=== PATIENT | female | born 1965 | race Caucasian/White ===

== ENCOUNTER 2019-02-08 12:08 | Inpatient (IN) | payer OTHER ==
--- NOTE | 2019-02-08 12:15 | PDOC ---
Rapid Medical Evaluation Chief Complaint: Blood Pressure Problem Time Seen by Provider: 02/08/19 12:11 Medical Evaluation: Allergies Allergy/AdvReac Type Severity Reaction Status Date / Time acetaminophen [From Percocet] AdvReac Severe Hives Verified 01/07/16 13:24 oxycodone HCl [From Percocet] AdvReac Severe Hives Verified 01/07/16 13:24 02/08/19 12:11 I performed a brief in-person evaluation of this patient. Briefly, this is a 54-year-old female with a history only of hypothyroidism who "felt funny" (brief blurred vision, "mixed up words") at work. Checked BP there and found it to be high - 156/110. No history of HTN. Asymptomatic at present. BP here is 128/83 I have ordered the following: None. Patient to proceed to the ED for further evaluation. Discharge Disposition - Diagnosis Hypertension - Referrals - Patient Instructions - Post Discharge Activity
--- NOTE | 2019-02-08 12:26 | PDOC ---
History of Present Illness - General Chief Complaint: Blood Pressure Problem Stated Complaint: HTN/BLURRY VISION Time Seen by Provider: 02/08/19 12:11 History Source: Patient Exam Limitations: No Limitations - History of Present Illness Initial Comments: Pt is a 54 yo F, with PMH of hypothyroidism (last checked 11/30), who is presenting after an hour-long episode of difficulty finding her words, blurry vision, light-headedness, and "feeling flushed all over, like agitated". Pt states the episode lasted about an hour, and her BP was higher than usual (156/ 110). Pt states her symptoms have improved by the time she came to the ER, and has never been prescribed medication for HTN. Pt did have pre-eclampsia during her last , which resolved. Pt denies any recent fevers/chills, headache , syncope, chest pain, palpitations, SOB, nausea/vomiting, abdominal pain, urinary symptoms, diarrhea/constipation, or leg swelling. Allergies: NKDA PCP: Dr. Hardy Social: Pt denies any cigarette, alcohol, or drug use. Pt denies any recent travel or sick contacts. Surgical: , tubal ligation Family: no relevant history. 02/08/19 16:45 02/08/19 16:49 Past History - Travel Traveled outside of the country in the last 30 days: No Close contact w/someone who was outside of country & ill: No - Past Medical History Allergies/Adverse Reactions: Allergies Allergy/AdvReac Type Severity Reaction Status Date / Time acetaminophen [From Percocet] AdvReac Severe Hives Verified 01/07/16 13:24 oxycodone HCl [From Percocet] AdvReac Severe Hives Verified 01/07/16 13:24 Home Medications: Ambulatory Orders Levothyroxine [Synthroid -] 50 mcg PO DAILY 08/19/15 COPD: No Thyroid Disease: Yes (HYPOTHYROID) - Immunization History Immunization Up to Date: No - Psycho Social/Smoking Cessation Hx Smoking History: Never smoked Have you smoked in the past 12 months: No Information on smoking cessation initiated: No Hx Alcohol Use: No Drug/Substance Use Hx: No Substance Use Type: None Neuro Specific PMHX - Complaint Specific PMHX Glaucoma: No Herniated Disk: No Laminectomy: No Migraine: No Multiple Sclerosis: No Neuropathy: No TIA: No Review of Systems - Review of Systems Able to Perform ROS?: Yes Is the patient limited Croatian proficient: No Constitutional: Yes: Weight Stable. No: Chills, Diaphoresis, Fever, Loss of Appetite, Malaise, Weakness HEENTM: Yes: Blurred Vision. No: Double Vision, Nose Congestion, Throat Pain, Throat Swelling, Difficulty Swallowing Respiratory: No: Cough, Orthopnea, Shortness of Breath Cardiac (ROS): Yes: Lightheadedness. No: Chest Pain, Edema, Irregular Heart Rate, Palpitations, Syncope, Chest Tightness ABD/GI: No: Constipated, Diarrhea, Nausea, Poor Appetite, Poor Fluid Intake, Vomiting : No: Burning, Dysuria, Flank Pain, Pain, Urgency Musculoskeletal: No: Back Pain, Muscle Pain, Muscle Weakness Integumentary: No: Rash Neurological: Yes: Paresthesia ("flushed and tingling all over"). No: Headache , Numbness, Seizure, Weakness, Unsteady Gait, Dizziness Psychiatric: No: Sleep Pattern Change, Change in Appetite Endocrine: No: Increased Urine, Change in Weight Hematologic/Lymphatic: No: Anemia, Blood Clots, Easy Bleeding, Easy Bruising All Other Systems: Reviewed and Negative *Physical Exam - Vital Signs Last Vital Signs Temp Pulse Resp BP Pulse Ox 98.4 F 83 16 128/83 99 02/08/19 12:12 02/08/19 12:12 02/08/19 12:12 02/08/19 12:12 02/08/19 12:12 - Physical Exam Comments: Vitals stable, not currently HTN on exam, pt afebrile. Pt in NAD, normal body habitus. Pt alert and oriented x3. 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 Cerebellar exam WNL. No midline spinal tenderness, step-offs, or crepitus. Head normocephalic, atraumatic. Eyes PERRLA, EOMI. Oropharynx without erythema or exudates, no LAD b/l. No nasal congestion, hearing intact. Clear heart sounds, S1/S2, no JVD, b/l pedal edema, or heart murmur. Clear lung sounds, no respiratory distress, wheezes, crackles, or accessory muscle use. No abdominal or CVA tenderness to palpation, no rebound, no guarding. Abdomen soft, non-distended, and with normoactive bowel sounds. Skin without jaundice or rash. 02/08/19 16:50 ED Treatment Course - LABORATORY CBC & Chemistry Diagram: 02/08/19 12:53 02/08/19 12:53 Medical Decision Making - Medical Decision Making Pt was seen at bedside, also will be seen by attending Dr. Mendosa. Pt presenting after an hour-long episode of elevated BP with concerning symptoms, including blurry vision, difficulty with word-finding, and light-headedness. Pts symptoms resolved in ER, with benign neurological exam. Considering ACS vs CVA/TIA vs hypertensive emergency. Will continue to reassess pt and monitor for symptomatic improvement. ECG: NSR (HR 80, CO 114, QRS 74, QTc 435). Flattening in III and AVF. No significant ST segment changes. No prior ECG for comparison. 02/08/19 16:04 CBC, CMP and coags generally WNL Trop <.02 Elevated LDL and total cholesterol -- providing aspirin CT head with no acute pathology. UA with no evidence of infection. Pt admitted to hospitalist team on stroke/tele bed for further observation and urgent MRI, as CT does not definitively r/o possible CVA/TIA. Will monitor for BP control and further neurologic symptoms. 02/08/19 16:51 Discharge - Discharge Information Problems reviewed: Yes Clinical Impression/Diagnosis: TIA (transient ischemic attack) Hypertension Qualifiers: Hypertension type: essential hypertension Qualified Code(s): I10 - Essential ( primary) hypertension Condition: Stable - Admission Yes - Follow up/Referral - Patient Discharge Instructions - Post Discharge Activity
[2019-02-08 13:05] LABS: BASO % 0.9 % (0-2.0); EOS % 0.5 % (0-4.5); HEMATOCRIT 38.4 % (32.4-45.2); HEMOGLOBIN 12.7 GM/dL (10.7-15.3); LYMPH % 19.1 % (8-40); MCH 31.2 pg (25.7-33.7); MCHC 33.1 g/dl (32.0-36.0); MEAN CELL VOLUME 94.3 fl (80-96); MEAN PLT VOLUME 10.8 fl (7.5-11.1); MONO % 5.5 % (3.8-10.2); PLATELET COUNT 169 K/MM3 (134-434); RBC 4.07 M/mm3 (3.60-5.2); RDW 13.6 % (11.6-15.6); WHITE BLOOD COUNT 6.3 K/mm3 (4.0-10.0)
[2019-02-08 13:44] LABS: ALBUMIN 4.3 g/dl (3.4-5.0); ALK PHOS 75 U/L (45-117); ANION GAP 8 MMOL/L (8-16); BILIRUBIN,TOTAL 0.3 mg/dL (0.2-1); BLOOD UREA NITROGEN 11.8 mg/dL (7-18); CALCIUM 9.2 mg/dL (8.5-10.1); CHLORIDE 103 mmol/L (98-107); CHOLESTEROL 227 mg/dL (50-200); CO2 28 mmol/L (21-32); GLUCOSE,RANDOM 123 mg/dL (74-106); HDL CHOLESTEROL 68 mg/dL (40-60); LDL CHOLESTEROL (ONLY SJRH) 140 mg/dL (5-100); POTASSIUM 3.5 mmol/L (3.5-5.1); SGOT/AST 19 U/L (15-37); SGPT/ALT 21 U/L (13-61); SODIUM 139 mmol/L (136-145); TOT PROT 7.5 g/dl (6.4-8.2); TRIGLYCERIDES 109 mg/dL (0-150)
--- NOTE | 2019-02-08 13:58 | EKG ---
Test Reason : Blood Pressure : / mmHG Vent. Rate : 080 BPM Atrial Rate : 080 BPM P-R Int : 114 ms QRS Dur : 074 ms QT Int : 378 ms P-R-T Axes : 032 -01 046 degrees QTc Int : 435 ms NORMAL SINUS RHYTHM NONSPECIFIC ST AND T WAVE ABNORMALITY ABNORMAL ECG WHEN COMPARED WITH ECG OF 10-DEC-2008 19:41, NONSPECIFIC T WAVE ABNORMALITY NOW EVIDENT IN INFERIOR LEADS Confirmed by ELIAS AGUILAR MD ([id number]) on 02/08/2019 1:58:04 PM Referred By: Confirmed By:ELIAS AGUILAR MD
[2019-02-08 14:24] LABS: INR 1.01 (0.83-1.09)
[2019-02-08 14:26] LABS: PROTHROMBIN TIME (PATIENT) 11.9 SEC (9.7-13.0)
[2019-02-08 14:30] LABS: URINE APPEARANCE CLEAR; URINE BILIRUBIN NEGATIVE (NEGATIVE); URINE COLOR YELLOW; URINE GLUCOSE (UA) NEGATIVE (NEGATIVE); URINE KETONE NEGATIVE (NEGATIVE)
[2019-02-08 14:33] LABS: URINE PROTEIN NEGATIVE (NEGATIVE)
[2019-02-08 14:34] LABS: URINE UROBILINOGEN 0.2 mg/dL (0.2-1.0)
[2019-02-08 14:55] LABS: URINE LEUK ESTERASE TRACE (NEGATIVE); URINE NITRITE NEGATIVE (NEGATIVE)
--- NOTE | 2019-02-08 14:56 | PDOC ---
Attending Attestation - Resident Resident Name: Layla Florez - ED Attending Attestation I have performed the following: I have examined & evaluated the patient, The case was reviewed & discussed with the resident, I agree w/resident's findings & plan, Exceptions are as noted - HPI HPI: 02/08/19 15:07 54 years old hypertension high cholesterol presents to the emergency department with episode of word finding difficulty and slurred speech. - Physicial Exam PE: 02/08/19 15:07 Vitals: Triage Vital signs reviewed General Appearance: no acute distress, well nourished well developed, Head: Atraumatic, Neck: Supple;No Nucal rigidity Chest Wall: Nontender Cardiac: Regular rate and rhythym, no murmurs, no rubs, no gallops, Lungs: Clear to auscultation bilateral, good air movement bilaterally, Abdomen: Soft, non distended, normal bowel sounds, non tender to palpation Extremities: Full range of motion to all extremities, no cyanosis, clubbing, or edema Skin: Warm and dry, no rashes or lesions, no rash, no petechiae Neuro: AOX3; Cranial Nerves 2-12 grossly intact, Strength intact to all extremities, Sensation intact to all extremities,gait normal Psych: normal mood, normal affect - Medical Decision Making 02/08/19 18:42 54 years old with possible TIA current NIHSS Score 0 Given uncontrolled hypertension uncontrolled high cholesterol we'll admit patient for further management.
[2019-02-08] MEDS ORDERED: ASPIRIN 325 MG TABLET PO ONE (15:05)
[2019-02-08] MEDS ORDERED: ASPIRIN 81 MG CHEWABLE TABLETS ONE (15:22)
--- NOTE | 2019-02-08 15:29 | HP ---
Admitting History and Physical - Primary Care Physician PCP: Ghassan Hardy - Admission Chief Complaint: single episode of word finding that immediately resolved History of Present Illness: 54 yo old female with PMH for hypothyroidism (on synthroid) & HLD (not on meds ) recently treated for a UTI with macrobid presenting to the ED with sigle episode of word finding. 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 She realized what she was saying and corrected herself. 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 History of Recent Travel: No Home Medications - Allergies Allergies/Adverse Reactions: Allergies Allergy/AdvReac Type Severity Reaction Status Date / Time acetaminophen [From Percocet] AdvReac Severe Hives Verified 01/07/16 13:24 oxycodone HCl [From Percocet] AdvReac Severe Hives Verified 01/07/16 13:24 - Home Medications Home Medications: Ambulatory Orders Levothyroxine [Synthroid -] 50 mcg PO DAILY 08/19/15 Family Medical History Family History: Denies Review of Systems - Review of Systems Constitutional: reports: No Symptoms Eyes: reports: No Symptoms HENT: reports: No Symptoms Neck: reports: No Symptoms Cardiovascular: reports: No Symptoms Respiratory: reports: No Symptoms Gastrointestinal: reports: No Symptoms Genitourinary: reports: No Symptoms Breasts: reports: No Symptoms Reported Musculoskeletal: reports: No Symptoms Integumentary: reports: No Symptoms Neurological: reports: No Symptoms Endocrine: reports: No Symptoms Hematology/Lymphatic: reports: No Symptoms Psychiatric: reports: No Symptoms Physical Examination Vital Signs: Vital Signs Temperature 98.4 F 02/08/19 12:12 Pulse Rate 83 02/08/19 12:12 Respiratory Rate 16 02/08/19 12:12 Blood Pressure 128/83 02/08/19 12:12 O2 Sat by Pulse Oximetry (%) 99 02/08/19 12:12 Constitutional: Yes: Well Nourished, No Distress, Calm Eyes: Yes: WNL, Conjunctiva Clear, EOM Intact HENT: Yes: WNL, Atraumatic, Normocephalic Neck: Yes: WNL, Supple, Trachea Midline Cardiovascular: Yes: WNL, Regular Rate and Rhythm Respiratory: Yes: WNL, Regular, CTA Bilaterally Gastrointestinal: Yes: WNL, Normal Bowel Sounds ...Rectal Exam: Yes: Deferred Renal/: Yes: WNL Breast(s): Yes: WNL Musculoskeletal: Yes: WNL Extremities: Yes: WNL Edema: No Peripheral Pulses WNL: Yes Integumentary: Yes: WNL Neurological: Yes: WNL, Alert, Oriented, Cran Nerves II-XII Intact ...Motor Strength: WNL Psychiatric: Yes: WNL Labs: CBC, BMP 02/08/19 12:53 02/08/19 12:53 Imaging - Results Cat Scan: Report Reviewed (HCT: no acute pathology) Problem List - Problems (1) TIA (transient ischemic attack) Assessment/Plan: claimed to have word finding that quickly resolved no dystharia on examination HCT without acute pathology ASA given in ED lipids panel sent, chol high observe on tele for return/procession of symptoms start atorvastatin continue ASA spoke with Dr Siegel and will see MRI of brain Code(s): G45.9 - TRANSIENT CEREBRAL ISCHEMIC ATTACK, UNSPECIFIED (2) Hypertension Assessment/Plan: normotensive or arrival to ED, on no meds will continue to monitor Code(s): I10 - ESSENTIAL (PRIMARY) HYPERTENSION (3) Urinary tract infection Assessment/Plan: completed course of macrobid, UA negative Code(s): N39.0 - URINARY TRACT INFECTION, SITE NOT SPECIFIED (4) Prophylactic measure Assessment/Plan: FEN no IVF needed monitor electrolytes DVT ambulatory c/w ASA Dispo observation on tele full code discharge planning Code(s): Z29.9 - ENCOUNTER FOR PROPHYLACTIC MEASURES, UNSPECIFIED Visit type - Emergency Visit Emergency Visit: Yes ED Registration Date: 02/08/19 Care time: The patient presented to the Emergency Department on the above date and was hospitalized for further evaluation of their emergent condition. - New Patient This patient is new to me today: Yes Date on this admission: 02/08/19 - Critical Care Critical Care patient: No
--- NOTE | 2019-02-08 16:22 | PN.NIHSS ---
NIH Stroke Scale - Last Known Well Date/Time & Onset Date Last Known Well: 02/08/19 Time Last Known Well: 11:30 - Initial Evaluation Level of consciousness: Alert Ask patient the month and their age: Answers both correctly Ask patient to open & close eyes; make fist and let go: Obeys both correctly Best gaze (horizontal eye movement): Normal Visual field testing: No visual field loss Facial paresis (Show teeth/raise eyebrows/close eyes tight): Normal symmetrical movement Motor Function: Left Arm: Normal Motor Function: Right Arm: Normal (extends arm 90 (or 45) degrees for 10 seconds without drift Motor Function: Left Leg: Normal (extends leg 30 degrees for 5 seconds without drift) Motor Function: Right Leg: Normal (extends leg 30 degrees for 5 seconds without drift) Limb Ataxia: No ataxia Sensory(Use pinprick test arms,legs,trunk,face/side to side): Normal Best language (Describe picture, name items, read sentences): No Aphasia Dysarthria (read several words): Normal articulation Extinction and Inattention: No abnormality - Total Score NIH Stroke Scale Score: 0
[2019-02-08] MEDS ORDERED: LORazepam 2 MG/ML SDV VIAL ONE (16:54)
[2019-02-08 18:45] VITALS: BMI 24.1
[2019-02-08] MEDS: ATORVASTATIN CA 40 MG TABLET (FP) PO SCH ×2 (21:01→21:04)
[2019-02-09] MEDS: LEVOTHYROXINE NA 50 MCG TABLET (FP) PO SCH (06:08)
[2019-02-09 07:29] LABS: BASO % 0.8 % (0-2.0); EOS % 1.4 % (0-4.5); HEMOGLOBIN 12.9 GM/dL (10.7-15.3); LYMPH % 39.5 % (8-40); MCH 31.6 pg (25.7-33.7); MCHC 33.2 g/dl (32.0-36.0); MEAN CELL VOLUME 95.3 fl (80-96); MEAN PLT VOLUME 10.6 fl (7.5-11.1); MONO % 7.3 % (3.8-10.2); PLATELET COUNT 168 K/MM3 (134-434); RBC 4.09 M/mm3 (3.60-5.2); WHITE BLOOD COUNT 5.6 K/mm3 (4.0-10.0)
[2019-02-09 07:49] LABS: BILIRUBIN,TOTAL 0.4 mg/dL (0.2-1); BLOOD UREA NITROGEN 12.2 mg/dL (7-18); CALCIUM 8.8 mg/dL (8.5-10.1); CREATININE 0.9 mg/dL (0.55-1.3); MAGNESIUM 2.4 mg/dL (1.8-2.4); POTASSIUM 4.4 mmol/L (3.5-5.1); TOT PROT 7.2 g/dl (6.4-8.2)
--- NOTE | 2019-02-09 14:14 | PN ---
Physical Exam: Chief Complaint: single episode of word finding that immediately resolved History of Present Illness: 54 yo old female with PMH for hypothyroidism (on synthroid) & HLD (not on meds ) recently treated for a UTI with macrobid presenting to the ED with sigle episode of word finding. 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 She realized what she was saying and corrected herself. She took her BP and it was noted to be in the low 160s and came to the ED for evaluation SUBJECTIVE: Patient seen and examined while patient sitting in chair. Patients states she feels normal. Denies CP, Fever, Chills, SHOB, N/V/D OBJECTIVE: Vital Signs Period Temp Pulse Resp BP Sys/Sanchez Pulse Ox Last 24 Hr 97.8 F-98.9 F 66-90 19-20 108-127/61-76 97-100 GENERAL: The patient is awake, alert, and fully oriented, in no acute distress. HEAD: Normal with no signs of trauma. EYES: PERRL, extraocular movements intact, sclera anicteric, conjunctiva clear. No ptosis. ENT: Ears normal, nares patent, oropharynx clear without exudates, moist mucous membranes. NECK: Trachea midline, full range of motion, supple. LUNGS: Breath sounds equal, clear to auscultation bilaterally, no wheezes, no crackles, no accessory muscle use. HEART: Regular rate and rhythm, S1 ABDOMEN: Soft, nontender, nondistended, normoactive bowel sounds, no guarding, no rebound, no hepatosplenomegaly, no masses. EXTREMITIES: 2+ pulses, warm, well-perfused, no edema. NEUROLOGICAL: Cranial nerves II through XII grossly intact. Normal speech, gait not observed. PSYCH: Normal mood, normal affect. SKIN: Warm, dry, normal turgor, no rashes or lesions noted Laboratory Results - last 24 hr 02/08/19 02/08/19 02/08/19 12:53 12:54 21:00 WBC RBC Hgb Hct MCV MCH MCHC RDW Plt Count MPV Absolute Neuts (auto) Neutrophils % Lymphocytes % Monocytes % Eosinophils % Basophils % Nucleated RBC % PT with INR 11.90 INR 1.01 Sodium Potassium Chloride Carbon Dioxide Anion Gap BUN Creatinine Est GFR (CKD-EPI)AfAm Est GFR (CKD-EPI)NonAf POC Glucometer 109 Random Glucose Calcium Magnesium Total Bilirubin AST ALT Alkaline Phosphatase Total Protein Albumin Urine Color Yellow Urine Appearance Clear Urine pH 7.0 Ur Specific [place] 1.004 L Urine Protein Negative Urine Glucose (UA) Negative Urine Ketones Negative Urine Blood Negative Urine Nitrite Negative Urine Bilirubin Negative Urine Urobilinogen 0.2 Ur Leukocyte Esterase Trace 02/09/19 02/09/19 02/09/19 06:07 06:15 06:15 WBC 5.6 RBC 4.09 Hgb 12.9 Hct 39.0 MCV 95.3 MCH 31.6 MCHC 33.2 RDW 14.0 Plt Count 168 MPV 10.6 Absolute Neuts (auto) 2.9 Neutrophils % 51.0 D Lymphocytes % 39.5 D Monocytes % 7.3 Eosinophils % 1.4 D Basophils % 0.8 Nucleated RBC % 0 PT with INR INR Sodium 141 Potassium 4.4 Chloride 106 Carbon Dioxide 30 Anion Gap 5 L BUN 12.2 Creatinine 0.9 Est GFR (CKD-EPI)AfAm 82.84 Est GFR (CKD-EPI)NonAf 71.48 POC Glucometer 84 Random Glucose 86 Calcium 8.8 Magnesium 2.4 Total Bilirubin 0.4 AST 19 ALT 22 Alkaline Phosphatase 80 Total Protein 7.2 Albumin 4.0 Urine Color Urine Appearance Urine pH Ur Specific [place] Urine Protein Urine Glucose (UA) Urine Ketones Urine Blood Urine Nitrite Urine Bilirubin Urine Urobilinogen Ur Leukocyte Esterase 02/09/19 12:26 WBC RBC Hgb Hct MCV MCH MCHC RDW Plt Count MPV Absolute Neuts (auto) Neutrophils % Lymphocytes % Monocytes % Eosinophils % Basophils % Nucleated RBC % PT with INR INR Sodium Potassium Chloride Carbon Dioxide Anion Gap BUN Creatinine Est GFR (CKD-EPI)AfAm Est GFR (CKD-EPI)NonAf POC Glucometer 150 Random Glucose Calcium Magnesium Total Bilirubin AST ALT Alkaline Phosphatase Total Protein Albumin Urine Color Urine Appearance Urine pH Ur Specific [place] Urine Protein Urine Glucose (UA) Urine Ketones Urine Blood Urine Nitrite Urine Bilirubin Urine Urobilinogen Ur Leukocyte Esterase Active Medications Generic Name Dose Route Start Last Admin Trade Name Freq PRN Reason Stop Dose Admin Atorvastatin Calcium 40 mg 02/08/19 22:00 02/08/19 21:04 Lipitor - PO Not Given HS PLACIDO Levothyroxine Sodium 50 mcg 02/09/19 07:00 02/09/19 06:08 Synthroid - PO 50 mcg AM PLACIDO Administration ASSESSMENT/PLAN: - Problems (1) TIA (transient ischemic attack) Assessment/Plan: no dystharia on examination HCT without acute pathology ASA given in ED lipids panel -Cholesterol Elevated -Discussed labs and educated patient on the importance of keeping her cholesterol under control and states she will not take any medication for her cholesterol and will manage it with diet. Observe on tele Patient refused atorvastatin continue ASA spoke with Dr Siegel and will see today after 3pm MRI of brain-No Acute pathology Code(s): G45.9 - TRANSIENT CEREBRAL ISCHEMIC ATTACK, UNSPECIFIED (2) Hypertension Assessment/Plan: normotensive or arrival to ED, on no meds will continue to monitor Code(s): I10 - ESSENTIAL (PRIMARY) HYPERTENSION (3) Urinary tract infection Assessment/Plan: completed course of macrobid, UA negative -Preliminary-Non Fermenting Lactose Fermenting Gnb (60k-70k colony count) Code(s): N39.0 - URINARY TRACT INFECTION, SITE NOT SPECIFIED (4) Prophylactic measure Assessment/Plan: FEN no IVF needed monitor electrolytes DVT ambulatory c/w ASA Dispo observation on tele full code discharge planning Code(s): Z29.9 - ENCOUNTER FOR PROPHYLACTIC MEASURES, UNSPECIFIED Visit type - Emergency Visit Emergency Visit: Yes ED Registration Date: 02/08/19 Care time: The patient presented to the Emergency Department on the above date and was hospitalized for further evaluation of their emergent condition. - New Patient This patient is new to me today: Yes Date on this admission: 02/10/19 - Critical Care Critical Care patient: No - Discharge Referral Referred to [facility] Med P.C.: No
--- NOTE | 2019-02-09 18:00 | CON.NEURO ---
Consult Consult Specialty:: NEUROLOGY-KATHY SMITH - History of Present Illness History of Present Illness: Pt is a 54 yo F, with PMH of hypothyroidism (last checked 11/30), who is presenting after an hour-long episode of difficulty finding her words, blurry vision, light-headedness, and "feeling flushed all over, like agitated". Pt states the episode lasted about an hour, and her BP was higher than usual (156/ 110). Pt states her symptoms have improved by the time she came to the ER, and has never been prescribed medication for HTN. Pt did have pre-eclampsia during her last , which resolved. Pt denies any recent fevers/chills, headache , syncope, chest pain, palpitations, SOB, nausea/vomiting, abdominal pain, urinary symptoms, diarrhea/constipation, or leg swelling. Reports hse had some word finding difficulty transiently, denies all other neurologic complaints. 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 Travel: No Home Medications - Allergies Allergies/Adverse Reactions: Allergies Allergy/AdvReac Type Severity Reaction Status Date / Time acetaminophen [From Percocet] AdvReac Severe Hives Verified 01/07/16 13:24 oxycodone HCl [From Percocet] AdvReac Severe Hives Verified 01/07/16 13:24 - Home Medications Home Medications: Ambulatory Orders Levothyroxine [Synthroid -] 50 mcg PO DAILY 08/19/15 Physical Exam-Neuro Vital Signs: Vital Signs Temperature 98.3 F 02/09/19 14:00 Pulse Rate 65 02/09/19 14:00 Respiratory Rate 18 02/09/19 14:00 Blood Pressure 123/75 02/09/19 14:00 O2 Sat by Pulse Oximetry (%) 100 02/09/19 09:00 Labs: CBC, BMP 02/09/19 06:15 02/09/19 06:15 INR, PTT INR 1.01 (0.83-1.09) 02/08/19 12:53 - Neuro Exam DTR's: 2+ Left Bicep, 2+ Right Bicep, 2+ Left Tricep, 2+ Right Tricep, 2+ Left Brachioradialis, 2+ Right Brachioradialis, 2+ Left Achilles, 2+ Right Achilles Motor Strength: 5/5: Left Arm, Right Arm, Left Leg, Right Leg Gait: Normal Assessment/Plan Likely TIA -transient motor aphasia. ?? etiology, elevated BP(PRES), microembolic dz, transient diminished intraarterial pressure in setting of cerebral atheresclerosis.. MRI witrhout evid of acute inf. Suggest:ASA 81mg daily, carotid ultrasound/echocardiogram(if not done recently). Thank you, Trey Siegel MD
[2019-02-09] MEDS: ATORVASTATIN CA 40 MG TABLET (FP) PO SCH (21:02)
[2019-02-10] MEDS: LEVOTHYROXINE NA 50 MCG TABLET (FP) PO SCH (06:30)
--- NOTE | 2019-02-10 07:27 | PN ---
Progress Note, Physician Chief Complaint: No complaints offered TIA/Stroke workup in progress. Feels well and is anxious to go home History of Present Illness: 54 yo old female with PMH for hypothyroidism (on synthroid) & HLD (not on meds ) recently treated for a UTI with macrobid presenting to the ED with sigle episode of word finding. 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 She realized what she was saying and corrected herself. She took her BP and it was noted to be in the low 160s and came to the ED for evaluation - Current Medication List Current Medications: Active Medications Atorvastatin Calcium (Lipitor -) 40 mg PO HS [facility] Last Admin: 02/09/19 21:02 Dose: Not Given Levothyroxine Sodium (Synthroid -) 50 mcg PO AM [facility] Last Admin: 02/10/19 06:30 Dose: 50 mcg - Objective Vital Signs: Vital Signs Temperature 97.5 F L 02/10/19 06:00 Pulse Rate 59 L 02/10/19 06:00 Respiratory Rate 16 02/10/19 06:00 Blood Pressure 104/73 02/10/19 06:00 O2 Sat by Pulse Oximetry (%) 99 02/09/19 20:44 Constitutional: Yes: Well Nourished, No Distress, Calm Eyes: Yes: WNL, Conjunctiva Clear HENT: Yes: WNL, Atraumatic, Normocephalic Neck: Yes: WNL, Supple, Trachea Midline Cardiovascular: Yes: WNL, Regular Rate and Rhythm Respiratory: Yes: WNL, Regular, CTA Bilaterally Gastrointestinal: Yes: WNL, Normal Bowel Sounds ...Rectal Exam: Yes: Deferred Genitourinary: Yes: WNL Breast(s): Yes: WNL Musculoskeletal: Yes: WNL Extremities: Yes: WNL Edema: No Peripheral Pulses: Left Radial: 2+, Right Radial: 2+, Left Doralis Pedis: 2+, Right Dorsalis Pedis: 2+, Left Femoral: 2+, Right Femoral: 2+ Integumentary: Yes: WNL, Other (IV to left AC) Neurological: Yes: WNL, Alert, Oriented ...Motor Strength: WNL Psychiatric: Yes: WNL Labs: INR, PTT INR 1.01 (0.83-1.09) 02/08/19 12:53 - ....Imaging MRI: Report Reviewed (Mri Brain:without evidence of acute infarct) Other: Report Reviewed (Carotid Dopplers: no significant stenosis) Problem List - Problems (1) TIA (transient ischemic attack) Assessment/Plan: initially with word finding difficulty that quickly resolved,no dystharia on examination presently HCT without acute pathology MRI of brain without acute infarct ASA given in ED lipids panel sent, chol high-->patient refusing to take statin despite counseling c/w ASA 81mg qd TTE pending Dr Siegel following patient Code(s): G45.9 - TRANSIENT CEREBRAL ISCHEMIC ATTACK, UNSPECIFIED (2) Hypertension Assessment/Plan: normotensive throughout stay will continue to monitor Code(s): I10 - ESSENTIAL (PRIMARY) HYPERTENSION Qualifiers: Hypertension type: essential hypertension Qualified Code(s): I10 - Essential (primary) hypertension (3) Urinary tract infection Assessment/Plan: completed course of macrobid, UA negative UCx with kluyvera asorbata, asymptomatic, 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 and no need to treat Code(s): N39.0 - URINARY TRACT INFECTION, SITE NOT SPECIFIED (4) Prophylactic measure Assessment/Plan: FEN no IVF needed monitor electrolytes DVT ambulatory c/w ASA Dispo observation on tele full code discharge planning after completion of TTE Code(s): Z29.9 - ENCOUNTER FOR PROPHYLACTIC MEASURES, UNSPECIFIED (5) Dietary counseling Assessment/Plan: counseled on low fat/cholesterol diet observed pt eating cheesburger with fries and onion righs refusing to take statin and stressed importance of lowering intake of fried foods given recent TIA Code(s): Z71.3 - DIETARY COUNSELING AND SURVEILLANCE Visit type - Emergency Visit Emergency Visit: Yes ED Registration Date: 02/08/19 Care time: The patient presented to the Emergency Department on the above date and was hospitalized for further evaluation of their emergent condition. - New Patient This patient is new to me today: No - Critical Care Critical Care patient: No - Discharge Referral Referred to [facility] Med P.C.: No
[2019-02-10 07:32] LABS: EOS % 2.5 % (0-4.5); HEMATOCRIT 40.3 % (32.4-45.2); HEMOGLOBIN 13.3 GM/dL (10.7-15.3); LYMPH % 41.8 % (8-40); MCH 31.5 pg (25.7-33.7); MCHC 33.1 g/dl (32.0-36.0); MEAN CELL VOLUME 95.3 fl (80-96); MONO % 7.2 % (3.8-10.2); NEUT % 47.5 % (42.8-82.8); PLATELET COUNT 163 K/MM3 (134-434); RBC 4.22 M/mm3 (3.60-5.2); WHITE BLOOD COUNT 5.3 K/mm3 (4.0-10.0)
[2019-02-10 07:50] LABS: BILIRUBIN,TOTAL 0.3 mg/dL (0.2-1); BLOOD UREA NITROGEN 14.2 mg/dL (7-18); CALCIUM 9.3 mg/dL (8.5-10.1); MAGNESIUM 2.3 mg/dL (1.8-2.4); POTASSIUM 4.3 mmol/L (3.5-5.1); TOT PROT 7.3 g/dl (6.4-8.2)
[2019-02-10] MEDS: ASPIRIN 81 MG CHEWABLE TABLETS PO SCH (12:35)
[2019-02-10] MEDS: ATORVASTATIN CA 40 MG TABLET (FP) PO SCH ×2 (22:06→22:10)
[2019-02-11] MEDS: LEVOTHYROXINE NA 50 MCG TABLET (FP) PO SCH (06:16)
[2019-02-11 08:39] LABS: ALBUMIN 3.7 g/dl (3.4-5.0); BILIRUBIN,TOTAL 0.4 mg/dL (0.2-1); BLOOD UREA NITROGEN 15.1 mg/dL (7-18); CALCIUM 8.9 mg/dL (8.5-10.1); CREATININE 0.9 mg/dL (0.55-1.3); MAGNESIUM 2.2 mg/dL (1.8-2.4); POTASSIUM 4.4 mmol/L (3.5-5.1); TOT PROT 6.9 g/dl (6.4-8.2)
[2019-02-11 08:43] LABS: BASO % 0.8 % (0-2.0); EOS % 2.8 % (0-4.5); HEMATOCRIT 39.1 % (32.4-45.2); HEMOGLOBIN 12.9 GM/dL (10.7-15.3); LYMPH % 34.1 % (8-40); MCH 31.4 pg (25.7-33.7); MCHC 33.1 g/dl (32.0-36.0); MEAN CELL VOLUME 94.8 fl (80-96); MEAN PLT VOLUME 11.1 fl (7.5-11.1); MONO % 8.4 % (3.8-10.2); NEUT % 53.9 % (42.8-82.8); PLATELET COUNT 155 K/MM3 (134-434); RBC 4.12 M/mm3 (3.60-5.2); RDW 14.1 % (11.6-15.6); WHITE BLOOD COUNT 4.9 K/mm3 (4.0-10.0)
[2019-02-11] MEDS: ASPIRIN 81 MG CHEWABLE TABLETS PO SCH (09:17)
--- NOTE | 2019-02-11 12:30 | ECHO ---
Name: ADEN MAYS Exam:Adult Echocardiogram Study Date: 02/11/2019 10:48 AM Age: 54 yrs Reason For Study: tia/stroke Height: 56 in Weight: 107 lb BSA: 1.4 m2 MMode/2D Measurements & Calculations IVSd: 0.73 cm Ao root diam: 2.8 cm LVIDd: 3.0 cm LA dimension: 2.1 cm LVIDs: 2.0 cm LVPWd: 0.82 cm LVPWs: 1.1 cm EDV(Teich): 36.4 ml ESV(Teich): 12.2 ml Doppler Measurements & Calculations MV E max tobi: 78.0 cm/sec Ao V2 max: 122.3 cm/sec MV A max tobi: 58.7 cm/sec Ao max P.0 mmHg MV E/A: 1.3 Ao V2 mean: 81.3 cm/sec MV dec time: 0.24 sec Ao mean P.2 mmHg Ao V2 VTI: 22.4 cm LV V1 max P.6 mmHg PA V2 max: 99.1 cm/sec LV V1 mean P.9 mmHg PA max P.9 mmHg LV V1 max: 94.3 cm/sec LV V1 mean: 60.6 cm/sec LV V1 VTI: 19.0 cm PI end-d tobi: 104.5 cm/sec Procedure A complete two-dimensional transthoracic echocardiogram was performed (2D, M-mode, Doppler and color flow Doppler). Left Ventricle The left ventricle is normal in size. Left ventricular systolic function is normal. Ejection Fraction = 65- 70%. No regional wall motion abnormalities noted. Right Ventricle The right ventricle is normal size. The right ventricular systolic function is normal. Atria The left atrial size is normal. Right atrial size is normal. Mitral Valve There is mild mitral valve thickening. There is mild mitral regurgitation. Tricuspid Valve The tricuspid valve is normal in structure and function. No tricuspid regurgitation. Aortic Valve There is mild aortic sclerosis.;. No aortic regurgitation is present. Pulmonic Valve The pulmonic valve is not well visualized. Mild pulmonic valvular regurgitation. Great Vessels The aortic root is normal size. Pericardium/Pleura There is no pericardial effusion. Interpretation Summary The left ventricle is normal in size. Left ventricular systolic function is normal. No regional wall motion abnormalities noted. Ejection Fraction = 65-70%. The right ventricular systolic function is normal. The left atrial size is normal. Right atrial size is normal. There is mild mitral valve thickening. There is mild mitral regurgitation. There is mild aortic sclerosis. Mild pulmonic valvular regurgitation. There is no pericardial effusion. Previous study is not available for comparison Bhaskar Kinney MD 02/11/2019 12:29 PM
--- NOTE | 2019-02-11 13:50 | DS ---
Physical Exam: SUBJECTIVE: Patient seen and examined OBJECTIVE: Vital Signs Period Temp Pulse Resp BP Sys/Sanchez Pulse Ox Last 24 Hr 97.6 F-98.5 F 61-76 14-18 91-143/56-73 99-100 PHYSICAL EXAM GENERAL: The patient is awake, alert, and fully oriented, in no acute distress. HEAD: Normal with no signs of trauma. EYES: PERRL, extraocular movements intact, sclera anicteric, conjunctiva clear. ENT: Ears normal, nares patent, oropharynx clear without exudates, moist mucous membranes. NECK: Trachea midline, full range of motion, supple. LUNGS: Breath sounds equal, clear to auscultation bilaterally, no wheezes, no crackles, no accessory muscle use. HEART: Regular rate and rhythm, S1, S2 without murmur, rub or gallop. ABDOMEN: Soft, nontender, nondistended, normoactive bowel sounds, no guarding, no rebound, no hepatosplenomegaly, no masses. EXTREMITIES: 2+ pulses, warm, well-perfused, no edema. NEUROLOGICAL: Cranial nerves II through XII grossly intact. Normal speech, gait not assessed PSYCH: Normal mood, normal affect. SKIN: Warm, dry, normal turgor, no rashes or lesions noted. LABS Laboratory Results - last 24 hr 02/11/19 02/11/19 07:00 07:00 WBC 4.9 RBC 4.12 Hgb 12.9 Hct 39.1 MCV 94.8 MCH 31.4 MCHC 33.1 RDW 14.1 Plt Count 155 MPV 11.1 Absolute Neuts (auto) 2.7 Neutrophils % 53.9 Lymphocytes % 34.1 Monocytes % 8.4 Eosinophils % 2.8 Basophils % 0.8 Nucleated RBC % 0 Sodium 141 Potassium 4.4 Chloride 106 Carbon Dioxide 29 Anion Gap 6 L BUN 15.1 Creatinine 0.9 Est GFR (CKD-EPI)AfAm 82.84 Est GFR (CKD-EPI)NonAf 71.48 Random Glucose 89 Calcium 8.9 Magnesium 2.2 Total Bilirubin 0.4 AST 13 L ALT 19 Alkaline Phosphatase 69 Total Protein 6.9 Albumin 3.7 HOSPITAL COURSE: Date of Admission:02/08/19 Date of Discharge: 02/11/19 Minutes to complete discharge: 30 Discharge Summary Problems reviewed: Yes Reason For Visit: TRANSIENT ISCHEMIC ATTACK Current Active Problems Dietary counseling (Acute) Hypertension (Acute) Prophylactic measure (Acute) TIA (transient ischemic attack) (Acute) Procedures: Principal: Head CT 02/08/2019. IMPRESSION: No evidence of acute intracranial hemorrhage. No CT evidence of acute territorial, transcortical infarct. Reported By: Jessee Urbina MD 02/08/19 1337. . MRI brain 02/08/2019. Impression: Mild volume loss which is nonspecific. No acute intracranial pathology is identified. Correlate clinically to determine follow-up. Reported By: Anabella Garrett MD 02/08/19 [id number]. * . Carotid Doppler 02/09/2019. Impression: No evidence of hemodynamically significant stenosis. Reported By: Felix Lr MD. . 02/10/19 0943 Other Procedures: TTE 02/11/2019. Impression: Normal LV size and systolic function. no regionaL wall motion abnormalities. EF 65-70%. mild mitral valve thickening, mild MR. mild aortic sclerosis. mild pulmonic valvular regurgitation. there is no pericardila effusion. Read by Dr. Bhaskar Kinney MD Hospital Course: 54 yo old female with PMH for hypothyroidism (on synthroid) & HLD (not on meds ) recently treated for a UTI with macrobid presenting to the ED with sigle episode of word finding. 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 She realized what she was saying and corrected herself. She took her BP and it was noted to be in the low 160s and came to the ED for evaluation. Patient evaluated by neuro and deemed to most likely have experienced a TIA - transient motor aphasia. Head CT and MRI without evidence of acute infarct. Carotid ultrasound/echocardiogram studies both negative. Patient discharged home with outpatient PCP follow up. Plan of Treatment: Please call PMD to schedule post discharge follow up appointment Condition: Good - Instructions Diet, Activity, Other Instructions: You have been diagnosed with a transient ischemic attack (TIA). You can think of a TIA as a temporary or mini-stroke. Blood temporarily could not reach part of your brain. Unlike a stroke, TIAs usually cause no lasting damage. If you think you are having symptoms of a TIA or stroke, get medical help right away even if the symptoms go away. Prevention Take your medicines exactly as directed. Dont skip doses. Learn to take your blood pressure. Keep a log for your doctor. Change your diet if your doctor tells you to. Your doctor may suggest that you cut back on salt. If so, here are some tips: Limit canned, dried, packaged, and fast foods. Dont add salt to your food at the table. Season foods with herbs instead of salt when you cook. Maintain a healthy weight. Get help to lose any extra pounds. Begin an exercise program. Ask your doctor how to get started. You can benefit from simple activities, such as walking or gardening. Limit your alcohol intake to no more than 2 drinks a day. Know your cholesterol level. Follow your doctors advice about how to keep cholesterol under control. If you are a smoker, you need to quit now. Enroll in a stop-smoking program to improve your chances of success. Ask your doctor about medicines or other methods to help you quit. Your healthcare provider will give you information on dietary changes that you may need to make, based on your situation. Your provider may recommend that you see a registered dietitian for help with diet changes. Changes may include: Reducing fat and cholesterol intake Reducing sodium (salt) intake, especially if you have high blood pressure Increasing your intake of fresh vegetables and fruits Eating lean proteins, such as fish, poultry, and legumes (beans and peas) and eating less red meat and processed meats Using low-fat dairy products Using vegetable and nut oils in limited amounts Limiting sweets and processed foods such as chips, cookies, and baked goods If you are overweight, your healthcare provider will work with you to lose weight and lower your body mass index (BMI) to a normal or near-normal level. Making diet changes and increasing physical activity can help. Begin an exercise program. Ask your doctor how to get started and how much activity you should try to get on a daily or weekly basis. You can benefit from simple activities such as walking or gardening. Learn stress-management techniques to help you deal with stress in your home and work life. Follow-up care Some medicines require blood tests to check for progress or problems. Keep follow-up appointments for any blood tests ordered by your doctors. Call 911 Call 911 right away if you have any of the following: Weakness, tingling, or loss of feeling on one side of your face or body Sudden double vision, or trouble seeing in one or both eyes Sudden trouble talking, or slurring your speech Trouble understanding others Sudden, severe headache Dizziness, loss of balance, or a spinning feeling, a sense of falling Blackouts or seizures Disposition: HOME - Home Medications Comprehensive Discharge Medication List: Ambulatory Orders Levothyroxine [Synthroid -] 50 mcg PO DAILY 08/19/15 Aspirin [ASA -] 81 mg PO DAILY 30 Days #30 tab.chew 02/11/19 Prescription Drug Monitoring Program (I-STOP) results: I-STOP not reviewed (no narcotics rxed) Problem List - Problems (1) TIA (transient ischemic attack) Problems reviewed: Yes Code(s): G45.9 - TRANSIENT CEREBRAL ISCHEMIC ATTACK, UNSPECIFIED This patient is new to me today: Yes Date on this admission: 02/11/19 Emergency Visit: Yes ED Registration Date: 02/08/19 Care time: The patient presented to the Emergency Department on the above date and was hospitalized for further evaluation of their emergent condition. Critical Care patient: No - Discharge Referral Referred to [facility] Med P.C.: No
[2019-02-11 14:47] VITALS: BP 100/56; PULSE 61; TEMP 98
== END 2019-02-11 15:12 | disposition home or self-care (01) | DRG 47 ==
LOC: JER 12:08 → JERBED 15:04 → OBSVTOIN 15:29 → J4S 18:51
PROVIDERS: ADMIT Internal Medicine; ATTEND Nurse Practitioner Family
DX: G45.9 Transient cerebral ischemic attack, unspecified (principal); I10 Essential (primary) hypertension; E03.9 Hypothyroidism, unspecified
CPT/HCPCS: 36415; 70450-TC; 70551-TC; 80053; 80061; 81003; 82962; 83721; 83735; 84443; 84484; 85025; 85610; 87086; 87186; 93005; 93010; 93306-TC; 93880-TC; 99283-25; G0378

== ENCOUNTER 2023-06-25 19:24 | Emergency (ER) | payer OTHER ==
[2023-06-25 19:42] VITALS: RESP 18; TEMP 98.8; BMI 17.9
[2023-06-25] MEDS ORDERED: IBUPROFEN 600 MG TABLET (FP) PO ONE (20:25)
[2023-06-25] MEDS: IBUPROFEN 600 MG TABLET (FP) PO ONE (20:32)
[2023-06-25] MEDS ORDERED: AZITHROMYCIN 500 MG TABLET PO ONE (21:08)
[2023-06-25 21:18] VITALS: BP 108/78; PULSE 96
== END 2023-06-25 21:18 | disposition home or self-care (01) ==
LOC: JER 19:24
DX: M54.6 Pain in thoracic spine (principal); R05.9 Cough, unspecified; R09.81 Nasal congestion; R50.9 Fever, unspecified; J06.9 Acute upper respiratory infection, unspecified; Z20.822 Contact with and (suspected) exposure to COVID-19
CPT/HCPCS: 0241U-QW; 71046-TC-FY; 99284-25